=== PATIENT | male | born 1970 | race Caucasian/White ===

== ENCOUNTER 2017-05-18 08:04 | Emergency (ER) | payer OTHER ==
[~2017-05-18] VITALS: Ht 182.9 cm; Wt 76.2 kg
[2017-05-18 08:09] VITALS: Ht 182.9 cm; Wt 76.2 kg
[2017-05-18] MEDS ORDERED: METHYLPREDNISOLONE 125 MG VIAL IV STA (08:26)
[2017-05-18] MEDS ORDERED: DiphenhydrAMINE HCL 50 MG/ML VIAL IV STA (08:26)
[2017-05-18] MEDS ORDERED: RANITIDINE HCL 50 MG/100 ML D5W IV STA (08:26)
[2017-05-18] MEDS ORDERED: FAMOTIDINE 20MG/5ML IV PUSH IV SCH (09:00)
[2017-05-18 09:02] LABS: BASO ABS # 0.05 K/uL (0-0.2); COMPLETE YES; EOS % 3.3 %; HEMATOCRIT 44.2 % (42-52); IG% 0.2 %; LYMPH % 41.4 %; LYMPH ABS # 2.02 K/uL (1.2-3.4); MEAN CELL VOLUME 91.1 fL (80-100); MEAN CORPUSCULAR HGB CONC 35.1 g/dl (32-36); MEAN PLATELET VOLUME 9.7 fL (7.4-10.4); NEUT % 46.1 %; PLATELET COUNT 245 K/uL (130-400); RED BLOOD COUNT 4.85 M/uL (4.7-6.1); WHITE BLOOD COUNT 4.88 K/uL (4.8-10.8)
[2017-05-18 09:19] LABS: ALT/SGPT 45 U/L (12-78); AST/SGOT 26 U/L (15-37); BLOOD UREA NITROGEN 14 mg/dl (7-18); BUN/CREATININE RATIO 12.7 (10-20); C-REACTIVE PROTEIN < 0.29 mg/dl (0-0.29); CALCIUM 9.4 mg/dl (8.5-10.1); CARBON DIOXIDE 30 mmol/L (21-32); CHLORIDE 101 mmol/L (98-107); CREATININE 1.07 mg/dl (0.60-1.40); GLUCOSE 88 mg/dl (70-99); SODIUM 138 mmol/L (136-145)
[2017-05-18 09:29] LABS: ALB/GLOB RATIO 1.1 (0.9-2); ALKALINE PHOSPHATASE 80 U/L (45-117)
[2017-05-18 10:13] LABS: LYME DISEASE AB IGG NEG (NEG); LYME DISEASE AB IGM NEG (NEG)
[2017-05-18] MEDS ORDERED: PRED20TA PO (10:49)
--- NOTE | 2017-05-18 10:51 | EMERGENCY ROOM VISIT NOTE ---
History First contact with patient: 08:19 Chief Complaint: RASH Stated Complaint: RASH, HOT SHAKY LIPS/SWOLLEN ITCHY History of Present Illness The patient is a 46 year old male who presents to the Emergency Room with complaints of "rash, hot shaky, lip swollen/itchy". The patient states that 1.5 weeks ago he noticed a red blotch on the left anterior chest. He states that shortly thereafter more spots develop on the chest into the back. He states that that was not 3-4 days ago. He states that he cannot sleep and feels as though he is very shaky. He states that he feels that he is burning up and still feels very itchy. He states that at this time is still tingly. He denies any chest pain, shortness of breath, new medications, taking medications, a medical problems, recent fever changes or tick bites. He notes he has been taking Benadryl with little relief. He states he was seen here for the same thing 2003. He does not have family doctor. Review of Systems A complete 10-point Review of Systems was discussed with the patient, with pertinent positives and negatives listed in the History of Present Illness. All remaining Review of Systems questions can be considered negative unless otherwise specified. Past Medical/Surgical History No pertinent. Family History No pertinent. Social History Smoking Status: Never Smoker Patient currently employed and lives locally. Current/Historical Medications Scheduled Prednisone (Prednisone), 0 PO DAILY Physical Exam Vital Signs Date Time Temp Pulse Resp B/P (MAP) Pulse Ox O2 Delivery O2 Flow Rate FiO2 05/18/17 11:06 37.1 68 18 103/78 97 05/18/17 10:15 65 18 103/78 100 05/18/17 08:09 37.1 101 18 119/82 99 Room Air Physical Exam VITAL SIGNS - Vital signs and nursing notes were reviewed. Stable. GENERAL -46-year-old male appearing his stated age who is in no acute distress. Communicates well with provider and answers questions appropriately. SKIN - there is a central slight raised erythematous region on the left anterior chest just below the left nipple region. This is oval in nature and is about 3 cm in diameter. There is also very small subcentimeter slightly raised erythematous regions that are circular in nature throughout the chest and back region. HEAD - NC/AT. EYES - PERRL with EOMI bilaterally. Sclera anicteric. Palpebral conjunctiva pink and moist with no injection noted. EARS - No deformities of external structures noted on gross examination bilaterally. NOSE - Midline and without cyanosis. No epistaxis or purulent drainage noted. MOUTH/OROPHARYNX - Without perioral cyanosis. Buccal mucosa pink and moist and without leukoplakia. Tongue midline with equal elevation of palate bilaterally. No tonsillar hypertrophy, erythema, or exudates noted. Fair dentition noted. NECK - Neck with FROM. Supple to palpation. No nuchal rigidity. LUNGS - Chest wall symmetric without accessory muscle use, intercostals retractions, or central cyanosis. Normal vesicular breath sounds CTA B/L. No wheezes, rales, or rhonchi appreciated. CARDIAC - RRR with S1/S2. No murmur, rubs, or gallops appreciated. Medical Decision & Procedures Laboratory Results 05/18/17 08:46 Red Blood Count 4.85, Mean Corpuscular Volume 91.1, Mean Corpuscular Hemoglobin 32.0, Mean Corpuscular Hemoglobin Concent 35.1, Mean Platelet Volume 9.7, Neutrophils (%) (Auto) 46.1, Lymphocytes (%) (Auto) 41.4, Monocytes (%) (Auto) 8.0, Eosinophils (%) (Auto) 3.3, Basophils (%) (Auto) 1.0, Neutrophils # (Auto) 2.25, Lymphocytes # (Auto) 2.02, Monocytes # (Auto) 0.39, Eosinophils # (Auto) 0.16, Basophils # (Auto) 0.05 05/18/17 08:46 Test 05/18/17 08:46 White Blood Count 4.88 K/uL (4.8-10.8) Red Blood Count 4.85 M/uL (4.7-6.1) Hemoglobin 15.5 g/dL (14.0-18.0) Hematocrit 44.2 % (42-52) Mean Corpuscular Volume 91.1 fL (80-100) Mean Corpuscular Hemoglobin 32.0 pg (25-34) Mean Corpuscular Hemoglobin Concent 35.1 g/dl (32-36) Platelet Count 245 K/uL (130-400) Mean Platelet Volume 9.7 fL (7.4-10.4) Neutrophils (%) (Auto) 46.1 % Lymphocytes (%) (Auto) 41.4 % Monocytes (%) (Auto) 8.0 % Eosinophils (%) (Auto) 3.3 % Basophils (%) (Auto) 1.0 % Neutrophils # (Auto) 2.25 K/uL (1.4-6.5) Lymphocytes # (Auto) 2.02 K/uL (1.2-3.4) Monocytes # (Auto) 0.39 K/uL (0.11-0.59) Eosinophils # (Auto) 0.16 K/uL (0-0.5) Basophils # (Auto) 0.05 K/uL (0-0.2) RDW Standard Deviation 40.8 fL (36.4-46.3) RDW Coefficient of Variation 12.2 % (11.5-14.5) Immature Granulocyte % (Auto) 0.2 % Immature Granulocyte # (Auto) 0.01 K/uL (0.00-0.02) Erythrocyte Sedimentation Rate 8 mm/hr (0-14) Anion Gap 7.0 mmol/L (3-11) Est Creatinine Clear Calc Drug Dose 94.0 ml/min Estimated GFR () 96.7 Estimated GFR (Non- 83.4 BUN/Creatinine Ratio 12.7 (10-20) Calcium Level 9.4 mg/dl (8.5-10.1) Total Bilirubin 0.5 mg/dl (0.2-1) Aspartate Amino Transf (AST/SGOT) 26 U/L (15-37) Alanine Aminotransferase (ALT/SGPT) 45 U/L (12-78) Alkaline Phosphatase 80 U/L (45-117) C-Reactive Protein < 0.29 mg/dl (0-0.29) Total Protein 8.1 gm/dl (6.4-8.2) Albumin 4.3 gm/dl (3.4-5.0) Globulin 3.8 gm/dl (2.5-4.0) Albumin/Globulin Ratio 1.1 (0.9-2) Thyroid Stimulating Hormone (TSH) 1.760 uIu/ml (0.300-4.500) Lyme Disease IgG Antibody NEG (NEG) Lyme Disease IgM Antibody NEG (NEG) Medications Administered Medications (Trade) Dose Ordered Sig/Zonia Route Start Time Stop Time Status Last Admin Dose Admin Methylprednisolone Sodium Succinate (Solu-Medrol IV) 125 mg NOW STAT IV 05/18/17 08:26 05/18/17 08:28 DC 05/18/17 08:49 125 MG Diphenhydramine HCl (Benadryl Inj) 50 mg NOW STAT IV 05/18/17 08:26 05/18/17 08:28 DC 05/18/17 08:49 50 MG Famotidine (Pepcid 20mg Iv Push) 20 mg TODAY@0900 IV 05/18/17 09:00 05/18/17 11:21 DC 05/18/17 09:00 20 MG Medical Decision Patient was seen and evaluated as above. He presents to us today with what appears to be a central herald patch on the left anterior chest followed by small oval lesions in similar appearance to the described-danielle patch as above. It then developed on the trunk and proximal areas of the extremities. Although the patient does have associated febrile sensation and lip tingling I will initiate IV access and provide him an allergic reaction cocktail of medication to include Zantac, Benadryl & Medrol. This was changed to Pepcid as Zantac is in very short supply as per recommendation from pharmacy. He was provided this. He was feeling groggy but was conversant and seems to be doing well. There is no leukocytosis or concerning anemia. ESR and CRP are negative. TSH within normal limits. No evidence of kidney or liver failure. Given the patient's presentation above workup, as well as nontoxic appearance and believe that treatment with continued steroids is appropriate the patient's severe symptomatic presentation of this Pityriasis rosea. The patient is to establish family doctor. He was educated upon management, educated upon worrisome symptoms which to return, had questions about digits, and was discharged home in good condition. In evaluation treatment this patient following differential diagnoses were entertained: Urticaria, pityriasis rosea, tinea versicolor, sepsis, among others. Impression Primary Impression: Pityriasis rosea-like skin eruption Departure Information Dispostion Home / Self-Care Condition GOOD Prescriptions Prednisone (Prednisone) 20 Mg Tab 0 PO DAILY, #18 TAB 3 DAILY FOR 3 DAYS, THEN 2 DAILY FOR 3 DAYS, THEN 1 DAILY FOR 3 DAYS. Prov: Luciano Scott PA-C 05/18/17 Referrals No Doctor, Assigned (PCP) Patient Instructions My [facility] Additional Instructions You were seen in the emergency Department for a rash that I believe to be Pityriasis Rosea This is subside in the next few weeks. The steroid for symptoms You have been prescribed Prednisone. This is an anti-inflammatory medicine to be used to help minimize your symptoms. You should take the COMPLETE course of the medication. Please call the back of your insurance card to establish family doctor in the area. Benadryl according to the package insert. Please return with any new/concerning symptoms.
[2017-05-18 11:06] VITALS: BP 103/78; PULSE 68; TEMP 37.1; O2SAT 97
== END 2017-05-18 11:07 | disposition home or self-care (01) ==
LOC: C.EDB 08:05
DX: L42 Pityriasis rosea (principal)